=== PATIENT | male | born 1980 | race Caucasian/White ===

== ENCOUNTER 2016-10-18 08:23 | Emergency (ER) | payer SELFPAY ==
[~2016-10-18] VITALS: Ht 177.8 cm; Wt 79.4 kg
--- NOTE | 2016-10-18 08:30 | NUR ---
PRESENT SELF TO ED NAUSEA, VOMITING, AND DIARRHEA SINCE 2299 YESTERDAY. PATIENT APPEARS IN NO ACUTE DISTRESS, RESPIRATION EVEN AND UNLABORED, COMPLAINING OF DIFFUSED ABDOMINAL PAIN 9/10, NON RADIATING. AFEBRILE AT THIS TIME. VSS. CONNECTED PATIENT TO TELE MONITOR. AWAITING FOR MD MCMANUS
[2016-10-18] MEDS ORDERED: ONDANSETRON HCL/PF 4 MG/2 ML VIAL ONE (09:14)
[2016-10-18] MEDS ORDERED: MORPHINE SULFATE INJ 4 MG/ML DISP.SYRIN ONE (09:14)
[2016-10-18] MEDS ORDERED: IV NS 0.9% 1,000 ML ONE (09:15)
[2016-10-18] MEDS ORDERED: IV SET PRIMARY 1 EA INFUS.SET MC ONE (09:15)
[2016-10-18] MEDS ORDERED: IV NS 0.9% 1,000 ML BAG IV ONE (09:30)
[2016-10-18] MEDS ORDERED: ONDANSETRON HCL/PF 4 MG/2 ML VIAL IVP ONE (09:30)
[2016-10-18] MEDS ORDERED: MORPHINE SULFATE INJ 2 MG/ML DISP.SYRIN IV ONE (09:30)
--- NOTE | 2016-10-18 09:34 | NUR ---
gbcarlaod sample sent to lab
--- NOTE | 2016-10-18 09:35 | NUR ---
Medicated patient as ordered
[2016-10-18 09:57] LABS: CALCIUM, SERUM 9.2 mg/dL (8.5-10.1); CREATININE 1.1 mg/dL (0.6-1.3); POTASSIUM 4.7 mmol/L (3.5-5.1)
[2016-10-18 09:58] LABS: BASOPHILS # (AUTO) 0.1 /CMM (0.0-0.2); BASOPHILS % (AUTO) 0.8 % (0.0-2.0); EOSINOPHILS % (AUTO) 0.3 % (0.0-6.0); HEMATOCRIT 52 % (39-51); HEMOGLOBIN 17.6 g/dL (13.5-17.5); LYMPHOCYTES # (AUTO) 0.5 /CMM (0.8-4.8); LYMPHOCYTES % (AUTO) 3.9 % (20.0-44.0); MEAN CORPUSCULAR HEMOGLOBIN 30 PG (26.0-33.0); MEAN CORPUSCULAR HGB CONC 34 g/dl (31.0-36.0); MEAN CORPUSCULAR VOLUME 87 fL (80-96); MONOCYTES # (AUTO) 0.7 /CMM (0.1-1.30); MONOCYTES % (AUTO) 5.5 % (2.0-12.0); NEUTROPHILS # (AUTO) 11.8 /CMM (1.8-8.9); NEUTROPHILS % (AUTO) 89.5 % (43.0-81.0); PLATELET COUNT (AUTO) 288 /CMM (150-450); RDW COEFFICIENT OF VARIATION 12.4 (11.5-15.0); RED BLOOD CELL COUNT(AUTO) 5.91 MIL/uL (4.5-6.0); WHITE BLOOD COUNT (AUTO) 13.1 K/uL (4.3-11.0)
[2016-10-18 10:04] LABS: ALBUMIN 4.3 g/dL (3.4-5.0); BILIRUBIN,DIRECT 0.1 mg/dL (0.0-0.2); TOTAL PROTEIN, SERUM 7.9 g/dL (6.4-8.2)
--- NOTE | 2016-10-18 10:26 | NUR ---
Urine sample sent to lab
[2016-10-18] MEDS ORDERED: SIMETHICONE 80 MG TAB.CHEW ONE (10:28)
[2016-10-18] MEDS ORDERED: SIMETHICONE 80 MG TAB.CHEW PO ONE (10:30)
[2016-10-18 10:39] LABS: APPEARANCE,URINE Slightly Cloudy (CLEAR); BILIRUBIN,URINE Negative (NEGATIVE); BLOOD, URINE Negative Ery/uL (NEGATIVE); COLOR,URINE Yellow (YELLOW); KETONES,URINE 40 (NEGATIVE); LEUKOCYTE ESTERASE ,URINE Negative (NEGATIVE); NITRITE, URINE Negative (NEGATIVE); PH,URINE 8.5 (5.0-8.0); PROTEIN,URINE 30 mg/dl (NEGATIVE); UGLUCOSE Negative (NEGATIVE); UROBILINOGEN,URINE 0.2 EU/dL (0.2)
[2016-10-18 10:45] LABS: ADD URINE CULTURE NO; BACTERIA,URINE Rare /HPF (None Seen); RBC,URINE 0-2 /HPF (0-2); SQUAMOUS EPITHELIAL CELL,UR Rare /HPF (None Seen); WBC,URINE 0-2 /HPF (0-3)
[2016-10-18 11:39] VITALS: BP 128/77
--- NOTE | 2016-10-18 11:39 | NUR ---
Patient discharged to home in stable condition. Written and verbal after care instructions given. Patient verbalizes understanding of instruction.IV removed. Catheter intact and site benign. Pressure and 4x4 applied to site. No bleeding noted.
[2016-10-18] MEDS ORDERED: ONDANSETRON 4 MG TAB.RAPDIS SL ONE (14:00)
== END 2016-10-18 11:40 | disposition home or self-care (01) ==
LOC: ER 08:27
DX: A08.4 Viral intestinal infection, unspecified (principal)
CPT/HCPCS: 36415; 80048-TC; 80076-TC; 81000-TC; 83690-TC; 85025-TC; A4606; J2270; J2405; J7030; Z7610